=== PATIENT | male | born 1955 | race Two or more races ===

== ENCOUNTER 2021-10-07 11:32 | Emergency (ER) | payer OTHER ==
[~2021-10-07] VITALS: Ht 165.1 cm; Wt 69.9 kg
[2021-10-07] MEDS ORDERED: METOPROLOL SUCC50 MG PO (12:31)
[2021-10-07] MEDS ORDERED: FLECAINIDE ACET50 MG PO (12:31)
[2021-10-07] MEDS ORDERED: ATORVASTATIN CA10 MG PO (12:32)
[2021-10-07] MEDS ORDERED: IRBESARTAN300 MG PO (12:32)
[2021-10-07] MEDS ORDERED: LEVOTHYROXINE50 MCG PO (12:33)
[2021-10-07] MEDS ORDERED: XARELTO20 M1 PO (12:33)
== END 2021-10-07 16:52 | disposition home or self-care (01) ==
LOC: ER 11:32
DX: R07.89 Other chest pain (principal); I10 Essential (primary) hypertension; U07.1 COVID-19; E03.9 Hypothyroidism, unspecified

== ENCOUNTER 2025-04-27 16:38 | Emergency (ER) | payer OTHER ==
[~2025-04-27] VITALS: Ht 165.1 cm; Wt 69.9 kg
[~2025-04-27 16:38] MED LIST: ATORVASTATIN CA10 MG PO; FLECAINIDE ACET50 MG PO; IRBESARTAN300 MG PO; LEVOTHYROXINE50 MCG PO; METOPROLOL SUCC50 MG PO; XARELTO20 M1 PO
[2025-04-27 16:43] VITALS: BP 134/73; O2SAT 100
[2025-04-27] MEDS ORDERED: SYNTHROID50 MCG PO (16:46)
[2025-04-27] MEDS ORDERED: NORVASC2.5 M1 PO (16:46)
[2025-04-27] MEDS ORDERED: MORPHINE SULFATE 4 MG/ML CARTRIDGE IV SCH (17:33)
[2025-04-27] MEDS ORDERED: MORPHINE SULFATE 4 MG/ML CARTRIDGE IV PRN (17:45)
[2025-04-27] MEDS ORDERED: DIATRIZOATE MEGLUMINE, SODIUM 30 ML BOTTLE PO ONE (17:45)
[2025-04-27] MEDS ORDERED: ONDANSETRON HCL 2 MG/ML VIAL IV ONE (17:45)
[2025-04-27] MEDS ORDERED: FAMOtidine 10 MG/ML (4ML VIAL) IV ONE (17:45)
[2025-04-27] MEDS ORDERED: 0.9 % SODIUM CHLORIDE 1,000 ML IV ONE (17:45)
[2025-04-27] MEDS ORDERED: PIPERACILLIN/TAZOBACTAM SODIUM 3.375 GM in DEXTROSE 5 % IN WATER 100 ML IV SCH (18:00)
[2025-04-27 18:28] LABS: URINE APPEARANCE Clear; URINE BILIRRUBIN Negative (NEGATIVE); URINE BLOOD Negative; URINE COLOR Yellow; URINE GLUCOSE Negative (NEGATIVE); URINE KETONE Negative (NEGATIVE); URINE LEUKOCYTE Negative; URINE NITRATE Negative; URINE PROTEIN Negative (NEGATIVE); URINE UROBILINOGEN 0.2 E.U./dl
[2025-04-27 18:36] LABS: BASO % 1.2 % (0.1-1.2); EOS # 0.20 (0.04-0.54); EOS % 2.6 % (0.7-7.0); LYMPH # 1.79 (1.18-3.74); LYMPH % 22.9 % (19.3-53.1); MEAN PLATELET VOLUME 10.80 fl (9.4-12.4); MONO # 0.68 (0.24-0.82); MONO % 8.7 % (4.7-12.5); NEUT # 5.05 (1.56-6.13); NEUT % 64.5 % (34.0-71.1); RED CELL DISTRIBUTION WIDTH 11.9 % (11.6-14.4)
[2025-04-27 18:58] LABS: URINE BACTERIA 0 uL (0.0-1933); URINE CAST 0.00 uL (0.0-1.40); URINE EPITHELIAL CELLS 0.3 uL (0.0-38.8); URINE RBC 1.1 uL (0.0-20.8); URINE WBC 0.9 uL (0.0-23.2)
[2025-04-27 19:01] LABS: INR 1.01
[2025-04-27 19:06] LABS: ALT/SGPT 26.0 U/L (12-78); AST/SGOT 19.0 U/L (15-37); BILIRUBIN TOTAL 2.06 mg/dL (0.3-1.2); BUN CREA RATIO 15.0 (7.0-25.0); CREATININE SERUM 1.22 mg/dL (0.70-1.30); GFR 58.56; GLOBULINA 4.0 G/DL (2.4-3.5); GLUCOSE FASTING 89.0 mg/dL (65-100); OSMOLALITY SERUM 275.0 MOSM/KG (275-295)
[2025-04-27] MEDS ORDERED: LEVSIN/SL0.125 MG SL (23:22)
[2025-04-27] MEDS ORDERED: PROTONIX40 MG PO (23:22)
== END 2025-04-28 03:00 | disposition home or self-care (01) ==
LOC: ER 16:39
PROVIDERS: General Practice
DX: K52.89 Other specified noninfective gastroenteritis and colitis (principal); K76.89 Other specified diseases of liver; I10 Essential (primary) hypertension; E03.9 Hypothyroidism, unspecified
CPT/HCPCS: 36415; 71045; 74176; 93005; 96365; 96366; 99284; J2270; J2405; J2543; J3490; J7030